=== PATIENT | male | born 1960 | race Caucasian/White ===

== ENCOUNTER 2016-03-21 07:36 | Emergency (ER) | payer BC ==
[~2016-03-21] VITALS: Ht 185.4 cm; Wt 89.0 kg
[2016-03-21 07:45] VITALS: Ht 185.4 cm; Wt 89.0 kg
[2016-03-21] MEDS ORDERED: SULFAMETHOXAZOLE/TRIMETHOPRIM DS 800/160MG TAB PO STA (08:05)
[2016-03-21] MEDS ORDERED: CEFTRIAXONE SOD INJ 1 GM ADDVIAL IV STA (08:05)
--- NOTE | 2016-03-21 08:57 | DIAGNOSTIC IMAGING REPORT ---
LEFT ELBOW MIN 3 VIEWS ROUTINE CLINICAL HISTORY: Pain following trauma. Possible septic joint. COMPARISON: None. DISCUSSION: The fat pads are not displaced. There are no acute fractures. There is a small spur at the level of both the medial and lateral epicondyles. There is 11 mm corticated ossicle inferior to the medial epicondyle. There is prominent posterior soft tissue swelling. No cortical destructive lesions are visualized. IMPRESSION: 1. No acute fractures 2. Prominent posterior soft tissue swelling 3. No destructive lesions are evident. Electronically signed by: Kyle Paz M.D. 03/21/2016 8:55 AM Dictated Date/Time: 03/21/2016 8:53 AM
[2016-03-21 09:00] LABS: BASO % 0.1 %; BASO ABS # 0.02 K/uL (0-0.2); COMPLETE YES; EOS % 0.6 %; HEMATOCRIT 49.4 % (42-52); IG% 0.5 %; LYMPH % 12.2 %; LYMPH ABS # 1.63 K/uL (1.2-3.4); MEAN CELL VOLUME 94.1 fL (80-100); MEAN CORPUSCULAR HEMOGLOBIN 34.7 pg (25-34); MEAN CORPUSCULAR HGB CONC 36.8 g/dl (32-36); MEAN PLATELET VOLUME 11.5 fL (7.4-10.4); NEUT % 75.6 %; PLATELET COUNT 289 K/uL (130-400); RED BLOOD COUNT 5.25 M/uL (4.7-6.1); WHITE BLOOD COUNT 13.41 K/uL (4.8-10.8)
[2016-03-21 09:16] LABS: BUN/CREATININE RATIO 14.2 (10-20); C-REACTIVE PROTEIN 2.69 mg/dl (0-0.29); CALCIUM 9.5 mg/dl (8.5-10.1); CREATININE 1.1 mg/dl (0.60-1.40); MAGNESIUM 2.2 mg/dl (1.8-2.4); POTASSIUM 4.2 mmol/L (3.5-5.1)
[2016-03-21] MEDS ORDERED: CEPH500C PO (10:05)
[2016-03-21] MEDS ORDERED: SULF800T23 PO (10:05)
--- NOTE | 2016-03-21 10:06 | EMERGENCY ROOM VISIT NOTE ---
History First contact with patient: 07:40 Chief Complaint: ELBOW PAIN/INJURY Stated Complaint: LEFT ELBOW PAIN History of Present Illness The patient is a 56 year old male who presents to the Emergency Department by private vehicle for evaluation of his LEFT elbow pain and swelling. He reports that he slipped and fell on the ice landing on his elbow a few weeks ago while hunting. He has small abrasion to the area which gave him no issues. He reports over the last 48 hours he has noticed increasing swelling, redness, warmth to the affected area. He is tried kapl-euy-hyruunf medications with minimal relief of symptoms. He reports decreased range of motion. He denies any fevers, chills, nausea, vomiting, or lethargic streaking. He rates his current discomfort as a 4/10. He denies any numbness or tingling into the distal extremity. The patient has no known history of MRSA infection. Review of Systems A complete 10-point Review of Systems was discussed with the patient, with pertinent positives and negatives listed in the History of Present Illness. All remaining Review of Systems questions can be considered negative unless otherwise specified. Social History Smoking Status: Never Smoker Smokeless Tobacco Use: No Alcohol Use: occasionally Marital Status: Housing Status: lives with significant other Occupation Status: employed Current/Historical Medications Scheduled Cephalexin Monohydrate (Keflex), 500 MG PO TID Sulfa/Trimethoprim (Bactrim Ds 800MG/160MG), 1 TAB PO BID Allergies Coded Allergies: No Known Allergies (Unverified , 03/24/16) Physical Exam Vital Signs Date Time Temp Pulse Resp B/P Pulse Ox O2 Delivery O2 Flow Rate FiO2 03/21/16 10:16 37.0 89 16 133/89 97 03/21/16 09:12 88 20 152/94 95 Room Air 03/21/16 07:45 37.2 94 18 156/91 96 Room Air Pain Rating (0-10): 4 Physical Exam VITAL SIGNS - Vital signs and nursing notes were reviewed. GENERAL - 56-year-old male appearing his stated age and in noticeable discomfort throughout the exam. MUSCULOSKELETAL - Active ROM of the LEFT elbow was limited in both flexion and extension secondary to edema. There is an abrasion to the olecranon with underlying significant edema and surrounding erythema. The area is mildly warm to touch. No fluctuance to palpation. No lymphangitic streaking. No tenderness with squeezing the forearm. No tenderness extending to up the humerus. No point-tenderness over the insertion of the No pain elicited with supination and pronation of the forearm. No palpable axillary lymphadenopathy. NEUROLOGIC - SENSORY: Spinothalamic tract was found to be intact with ability to discriminate sharp versus dull sensation at the level of the LEFT shoulder down to the fingertips. No sensory deficits of the dorsal column were appreciated utilizing light touch for evaluation. VASCULAR - Capillary refill was brisk. +3/5 radial pulse palpated. Medical Decision & Procedures ER Provider Diagnostic Interpretation: Radiological imaging and reports were reviewed by myself. Radiologist's Interpretation as follows: LEFT ELBOW MIN 3 VIEWS ROUTINE CLINICAL HISTORY: Pain following trauma. Possible septic joint. COMPARISON: None. DISCUSSION: The fat pads are not displaced. There are no acute fractures. There is a small spur at the level of both the medial and lateral epicondyles. There is 11 mm corticated ossicle inferior to the medial epicondyle. There is prominent posterior soft tissue swelling. No cortical destructive lesions are visualized. IMPRESSION: 1. No acute fractures 2. Prominent posterior soft tissue swelling 3. No destructive lesions are evident. Laboratory Results 03/21/16 08:30 Red Blood Count 5.25, Mean Corpuscular Volume 94.1, Mean Corpuscular Hemoglobin 34.7, Mean Corpuscular Hemoglobin Concent 36.8, Mean Platelet Volume 11.5, Neutrophils (%) (Auto) 75.6, Lymphocytes (%) (Auto) 12.2, Monocytes (%) (Auto) 11.0, Eosinophils (%) (Auto) 0.6, Basophils (%) (Auto) 0.1, Neutrophils # (Auto ) 10.14, Lymphocytes # (Auto) 1.63, Monocytes # (Auto) 1.47, Eosinophils # (Auto ) 0.08, Basophils # (Auto) 0.02 03/21/16 08:30 Test 03/21/16 08:30 White Blood Count 13.41 K/uL (4.8-10.8) Red Blood Count 5.25 M/uL (4.7-6.1) Hemoglobin 18.2 g/dL (14.0-18.0) Hematocrit 49.4 % (42-52) Mean Corpuscular Volume 94.1 fL (80-100) Mean Corpuscular Hemoglobin 34.7 pg (25-34) Mean Corpuscular Hemoglobin Concent 36.8 g/dl (32-36) Platelet Count 289 K/uL (130-400) Mean Platelet Volume 11.5 fL (7.4-10.4) Neutrophils (%) (Auto) 75.6 % Lymphocytes (%) (Auto) 12.2 % Monocytes (%) (Auto) 11.0 % Eosinophils (%) (Auto) 0.6 % Basophils (%) (Auto) 0.1 % Neutrophils # (Auto) 10.14 K/uL (1.4-6.5) Lymphocytes # (Auto) 1.63 K/uL (1.2-3.4) Monocytes # (Auto) 1.47 K/uL (0.11-0.59) Eosinophils # (Auto) 0.08 K/uL (0-0.5) Basophils # (Auto) 0.02 K/uL (0-0.2) RDW Standard Deviation 42.9 fL (36.4-46.3) RDW Coefficient of Variation 12.6 % (11.5-14.5) Immature Granulocyte % (Auto) 0.5 % Immature Granulocyte # (Auto) 0.07 K/uL (0.00-0.02) Erythrocyte Sedimentation Rate 13 mm/hr (0-14) Anion Gap 11.0 mmol/L (3-11) Est Creatinine Clear Calc Drug Dose 84.7 ml/min Estimated GFR () 86.5 Estimated GFR (Non- 74.6 BUN/Creatinine Ratio 14.2 (10-20) Calcium Level 9.5 mg/dl (8.5-10.1) Magnesium Level 2.2 mg/dl (1.8-2.4) Total Bilirubin 1.3 mg/dl (0.2-1) Aspartate Amino Transf (AST/SGOT) 23 U/L (15-37) Alanine Aminotransferase (ALT/SGPT) 62 U/L (12-78) Alkaline Phosphatase 73 U/L (45-117) C-Reactive Protein 2.69 mg/dl (0-0.29) Total Protein 8.5 gm/dl (6.4-8.2) Albumin 4.3 gm/dl (3.4-5.0) Globulin 4.2 gm/dl (2.5-4.0) Albumin/Globulin Ratio 1.0 (0.9-2) Date/Time Source Procedure Growth Status 03/21/16 08:30 Blood Blood Culture - Final NO GROWTH Complete 03/21/16 08:03 Abscess Elbow Gram Stain - Final Complete 03/21/16 08:03 Wound Culture - Final Staphylococcus Aureus Coag Neg Staphylococcus Complete Medications Administered Medications (Trade) Dose Ordered Sig/Gely Route Start Time Stop Time Status Last Admin Dose Admin Ceftriaxone Sodium (Rocephin Inj) 1 gm NOW STAT IV 03/21/16 08:05 03/21/16 08:09 DC 03/21/16 08:49 1 GM Trimethoprim/ Sulfamethoxazole (Septra Ds 800/ 160MG Tab) 1 tab NOW STAT PO 03/21/16 08:05 03/21/16 08:09 DC 03/21/16 08:32 1 TAB ED Course Patient was seen and evaluated by myself. An abrasion to the left elbow was unroofed and wound culture was obtained and pending. Labs were drawn, saline lock in place. Blood cultures were obtained. The patient was treated with 1 g of intravenous Rocephin and 1 oral Bactrim laboratory results demonstrate a moderate leukocytosis of greater than 13,000. The patient is not anemic. There are no significant electrolyte abnormalities. ESR is not elevated. CRP is minimally elevated. Imaging results above. Laboratory results and imaging studies were reviewed with the patient who acknowledges understanding. The patient will return to the emergency department 48 hours for recheck. He was educated on worrisome symptoms for return visit to the emergency department sooner within this timeframe. Patient was educated on jacz-reg-ebnicct medications. He declines any pain at home. Patient discharged home in good condition. Medical Decision Given the patient's presentation and exam findings, I did elect to perform the above-mentioned workup. The patient presents today with pain, swelling, and redness to the olecranon of the left elbow. He has no fever. He does have a leukocytosis. The patient was aggressively managed with intravenous antibiotics as well as oral antibiotics to cover for MRSA strains of infection. X-ray results demonstrate no intra-articular extension of the infection or joint effusion otherwise. It appears as though the infection is isolated to the electron area. He is likely expansion an acute olecranon bursitis with infection. He'll be placed on Keflex and Bactrim for home. He will return in 48 hours for wound recheck or sooner if his symptoms worsen in this timeframe. The patient is not a diabetic making his care decision for treatment and outpatient much easier. The patient was educated on worrisome symptoms for return visit to the emergency department. Patient discharged home afebrile and in good condition. In the evaluation and treatment of this patient, the following differential diagnoses were considered: Forearm Contusion, Radial Head Fracture, Radial Styloid Process Fracture, Ulnar Styloid Process Fracture, Radius Fracture, Ulnar Fracture, Tennis Elbow, Golfer's Elbow, or Elbow Fracture. Impression Primary Impression: Septic olecranon bursitis of left elbow Departure Information Dispostion Home / Self-Care Condition GOOD Prescriptions Sulfa/Trimethoprim (Bactrim Ds 800MG/160MG) Tab 1 TAB PO BID for 10 Days, #20 TAB Prov: Kevin Hawthorne PA-C 03/21/16 Cephalexin Monohydrate (Keflex) 500 Mg Cap 500 MG PO TID for 10 Days, #30 CAP Prov: Kevin Hawthorne PA-C 03/21/16 Referrals No Doctor, Assigned (PCP) Patient Instructions ED Bursitis Elbow Olecranon, [facility] Additional Instructions You were seen in the Emergency Department for Septic Olecranon Bursitis. You will need to return to the emergency department in 48 hours for wound recheck. Return to the emergency department sooner within this timeframe if your symptoms worsen despite the treatment plan outlined below. You were prescribed Keflex and Bactrim to be taken as prescribed. Both of these medications are antibiotics. Stop these medications and contact a medical provider if you were to develop any significant adverse side effects including: wheezing, shortness of breath, passing out, vomiting, or a diffuse rash. Always take antibiotics as directed and COMPLETE the ENTIRE course regardless of the improvement of your symptoms. Proper wound care is essential for adequate wound healing and infection prevention. You can shower and clean the wound with soap and water. Do not scour over the wound. Pat dry with a towel. Do not submerse the wound (i.e. bathe or dish wash) until the sutures have been removed. You can use an antibiotic ointment with a dressing over the wound for the next 3-4 days. After this time you may leave the wound dry and open to the air. If crust develops over the wound you can use a Q-tip to apply a 1:1 peroxide:water solution to clean the wound. Look for signs of infection of the wound including: increased pain, swelling, foul discharge, streaking, or increased temperature. If any of these are noticed you should return to the Emergency Department for further assessment and treatment. For pain control, you can use the following ktdj-yfz-klwpsak medicines (if >12 yo): - Regular strength (325mg/tab) Tylenol (acetaminophen) 2 tabs every 4-6 hours as needed. Do not exceed 12 tablets in a 24 hour period. Avoid taking more than 4 grams (4000 mg) of Tylenol per day. This includes any other sources of acetaminophen you may take on a regular basis. - Regular strength (200 mg/tab) Advil (ibuprofen) 1-2 tabs every 4-6 hours as needed. Do not exceed a dose of 3200 mg per day. Return to the emergency department if your symptoms worsen despite treatment course outlined above.
[2016-03-21 10:16] VITALS: BP 133/89; PULSE 89; TEMP 37; O2SAT 97
--- NOTE | 2016-03-23 10:55 | Pharmacy Progress Note ---
ED Pharmacist Culture FollowUp Date of Service: Mar 23, 2016. Patient was sent home with a prescription for Keflex 500mg PO TID and Bactrim DS 1 tab PO BID x 10 days, which should cover the Staph Aureus growing from the patient's deep wound culture from elbow abscess. This culture is also growing CoN Staph, rare quantity, this could reflect skin fitz and not an infectious organism, however if it were pathogenic there is a chance it may be covered by Bactrim as well. Patient is to return for wound f/u in 48 hours. No action required at this time.
== END 2016-03-21 10:17 | disposition home or self-care (01) ==
LOC: C.EDB 07:37
DX: M70.22 Olecranon bursitis, left elbow (principal)

== ENCOUNTER 2016-03-24 10:04 | Emergency (ER) | payer BC ==
[~2016-03-24] VITALS: Ht 185.4 cm; Wt 94.2 kg
[~2016-03-24 10:04] MED LIST: CEPH500C PO; SULF800T23 PO
[2016-03-24 10:16] VITALS: TEMP 36.8; Ht 185.4 cm; Wt 94.2 kg
--- NOTE | 2016-03-24 10:50 | EMERGENCY ROOM VISIT NOTE ---
ED Visit Note First contact with patient: 10:25 CHIEF COMPLAINT: Recheck of left elbow HISTORY OF PRESENT ILLNESS: This 56-year-old male patient presents to the emergency department a mandatory for a recheck of his left elbow wound. The patient states that he was seen here 3 days ago and told he had an infection of the left elbow. He was placed on antibiotics and sent home. He has been taking the antibiotics as prescribed. He does report that the wound appears to be improving. He rates his current discomfort a 2/10. He states there is decreased redness and swelling of the elbow and his range of motion has improved. He denies any fevers/chills. He denies any drainage from the elbow. REVIEW OF SYSTEMS: A review of systems was performed with positives and pertinent negatives listed in the history of present illness. All other systems were reviewed and are negative. ALLERGIES: No known drug allergies MEDICATIONS: No chronic medications PMH: No significant past medical history. SOCIAL HISTORY: The patient lives locally with family. He is a smoker. He admits to occasional alcohol use. PHYSICAL EXAM: VITALS: Vitals are noted on the nurse's note and reviewed by myself. Vital signs stable. GENERAL: This is a 56-year-old male, in no acute distress, nondiaphoretic, well- developed well-nourished. MUSCULOSKELETAL: There is mild edema over the left elbow. There is minimal erythema over the left olecranon process. There is a small scabbed area. There is no drainage or warmth. EMERGENCY DEPARTMENT COURSE: The patient was evaluated as above. Previous records were reviewed. The patient was seen here 3 days ago for a septic olecranon bursitis. Cultures were obtained at that time and did grow out staph aureus sensitive to Bactrim. The patient was informed that he may stop taking the Keflex. He will continue the Bactrim as prescribed. He was instructed to return for worsening symptoms or follow up with his primary care provider for a recheck next week. The patient verbalized understanding of my assessment and treatment plan and was discharged home in good condition. DIAGNOSIS: Wound recheck Current/Historical Medications Scheduled Cephalexin Monohydrate (Keflex), 500 MG PO TID Sulfa/Trimethoprim (Bactrim Ds 800MG/160MG), 1 TAB PO BID Allergies Coded Allergies: No Known Allergies (Unverified , 03/24/16) Vital Signs Date Time Temp Pulse Resp B/P Pulse Ox O2 Delivery O2 Flow Rate FiO2 03/24/16 11:11 77 16 144/79 98 03/24/16 10:16 36.8 84 16 146/90 97 Room Air Departure Information Impression Primary Impression: Encounter for wound re-check Dispostion Home / Self-Care Condition GOOD Referrals No Doctor, Assigned (PCP) Narciso Navarrete MD Patient Instructions My [facility] Additional Instructions Continue the Bactrim twice daily as prescribed. Made sure to complete this entire course of antibiotics. You may stop taking the Keflex. For pain control, you can use the following ucrj-tyu-ejjohuu medicines (if >12 yo): - Regular strength (325mg/tab) Tylenol (acetaminophen) 2 tabs every 4-6 hours as needed. Do not exceed 12 tablets in a 24 hour period. Avoid taking more than 4 grams (4000 mg) of Tylenol per day. This includes any other sources of acetaminophen you may take on a regular basis. - Regular strength (200 mg/tab) Advil (ibuprofen) 1-2 tabs every 4-6 hours as needed. Do not exceed a dose of 3200 mg per day. If there is any persistent swelling of the elbow after the antibiotics are finished, follow-up with orthopedics. You should follow-up with your primary care provider next week in 4-5 days for a recheck. Return to the emergency department immediately with worsening swelling, worsening redness, fevers, drainage or any other new/concerning symptoms.
[2016-03-24 11:11] VITALS: BP 144/79; PULSE 77; O2SAT 98
== END 2016-03-24 11:12 | disposition home or self-care (01) ==
LOC: C.EDB 10:06 → C.EDD 11:12
DX: Z09 Encounter for follow-up examination after completed treatment for conditions other than malignant neoplasm (principal); M70.22 Olecranon bursitis, left elbow; B95.61 Methicillin susceptible Staphylococcus aureus infection as the cause of diseases classified elsewhere; F17.210 Nicotine dependence, cigarettes, uncomplicated

== ENCOUNTER 2020-03-12 20:02 | Observation (INO) ==
[2020-03-12] MEDS ORDERED: SODIUM CHLORIDE 0.9% 1000ML 1,000 ML IV SCH (20:15)
--- NOTE | 2020-03-12 20:20 | Emergency Department Note ---
History of Present Illness General Chief complaint: Syncope Stated complaint: SYNCOPE, FALL, Time Seen by Provider: 03/12/20 20:04 Source: patient and EMS Mode of arrival: EMS History of Present Illness Provider complaint: Syncope Onset (ago): hour(s) 1 Location: head Pain Consistency: + intermittent Quality: + other (Passed out) Exacerbated By: + other (Sitting up) Associated symptoms: no chest pain, no cough, no fever/chills, no headaches, no malaise, no nausea/vomiting, no seizure and no shortness of breath This is a 60-year-old male who presents status post syncopal episode at approximately 7 PM today. The patient states he was standing talking to someone when he just suddenly passed out. He had no symptoms prior to passing out. Witnesses state that he fell backwards hitting his head on the ground. He was unconscious briefly and when they try to sit him up he passed out again. They then called EMS. EMS arrived and when they try to set him up he passed out once more. He stated that he has been well and has had no recent illness. He denies having any current or previous chest discomfort, shortness of breath, palpitations, skipping of his heartbeat, headache, neck pain, back pain, abdominal pain, black or bloody stools, vomiting, diarrhea or urinary symptoms. He did have an exposure to COVID-19 on Sunday of the previous week. He subsequently had a COVID-19 test 7 days ago which was negative. He denies any cough or cold symptoms. He denies any symptoms at this time other than an abrasion to his right knee. He does state that his tetanus is up-to-date. He has never passed out before. There is no history of sudden in the family. There is no report of seizure activity but he did have incontinence after the third episode of syncope. He did later state that he drank about 6 beers tonight. They were light beers and he did not feel intoxicated. Home Medications Medication Instructions Recorded Confirmed Type multivit with min-folic acid 1 tab PO QAM 03/12/20 03/12/20 History [Men's Multivitamin Gummies] omeprazole magnesium [Prilosec OTC] 20 mg PO QAM 03/12/20 03/12/20 History Allergies Allergy/AdvReac Type Severity Reaction Status Date / Time No Known Allergies Allergy Verified 03/12/20 22:09 Past Med/Surg History Surgical History (Updated 03/13/20 @ 00:09 by Eri Mederos DO) History of elbow surgery Family History Father Pancreatic cancer Denies family history of Prostate cancer Social History (Updated 03/13/20 @ 00:09 by Eri Mederos DO) Smoking Status: Current some day smoker Tobacco Type: Cigars Hx Alcohol Use: Yes Preferred Language: [place] Islander Feels Safe at Home: Yes Review of Systems See HPI for pertinent positives & negatives. and A total of 10 systems reviewed and were otherwise negative Physical Exam Vital Signs Vital Signs - 24 hr 03/12/20 20:24 03/12/20 20:30 03/12/20 21:14 Temperature 36.5 C Temperature Source Oral Pulse Rate - Lying 104 H Pulse Rate - Sitting 108 H Pulse Rate - Standing 111 H Pulse Rate 80 97 H Pulse Rate from SpO2 Sensor 89 Pulse Rhythm Regular Pulse Strength Normal Respiratory Rate 18 14 Respiratory Effort / Characteristics Non-Labored Spontaneous Respiratory Depth Normal Respiratory Pattern Regular Blood Pressure - Lying 152/83 H Blood Pressure - Sitting 155/87 H Blood Pressure- Standing 147/78 H Blood Pressure 155/78 H 144/77 H Blood Pressure Mean 103 103 Blood Pressure Position Lying Pulse Oximetry 97 95 Oxygen Delivery Method Room Air Room Air Sepsis Recent Fever Within 48 Hours No Sepsis New/Unexplained Change in Mental Status No Sepsis Action Taken by Nursing No Action Required 03/12/20 21:30 03/12/20 22:00 03/12/20 22:30 Temperature Temperature Source Pulse Rate - Lying Pulse Rate - Sitting Pulse Rate - Standing Pulse Rate 105 H 108 H 112 H Pulse Rate from SpO2 Sensor Pulse Rhythm Pulse Strength Respiratory Rate 14 15 17 Respiratory Effort / Characteristics Respiratory Depth Respiratory Pattern Blood Pressure - Lying Blood Pressure - Sitting Blood Pressure- Standing Blood Pressure 141/76 H 132/73 139/75 Blood Pressure Mean 94 92 82 Blood Pressure Position Pulse Oximetry 96 Oxygen Delivery Method Room Air Sepsis Recent Fever Within 48 Hours Sepsis New/Unexplained Change in Mental Status Sepsis Action Taken by Nursing 03/12/20 23:08 03/12/20 23:30 03/13/20 00:00 Temperature Temperature Source Pulse Rate - Lying Pulse Rate - Sitting Pulse Rate - Standing Pulse Rate 107 H 113 H 109 H Pulse Rate from SpO2 Sensor 108 H 112 H Pulse Rhythm Pulse Strength Respiratory Rate 15 18 17 Respiratory Effort / Characteristics Respiratory Depth Respiratory Pattern Blood Pressure - Lying Blood Pressure - Sitting Blood Pressure- Standing Blood Pressure 153/90 H 141/91 H 152/83 H Blood Pressure Mean 107 106 105 Blood Pressure Position Pulse Oximetry 94 94 94 Oxygen Delivery Method Room Air Room Air Room Air Sepsis Recent Fever Within 48 Hours Sepsis New/Unexplained Change in Mental Status Sepsis Action Taken by Nursing 03/13/20 00:30 Temperature Temperature Source Pulse Rate - Lying Pulse Rate - Sitting Pulse Rate - Standing Pulse Rate 114 H Pulse Rate from SpO2 Sensor 113 H Pulse Rhythm Pulse Strength Respiratory Rate 18 Respiratory Effort / Characteristics Respiratory Depth Respiratory Pattern Blood Pressure - Lying Blood Pressure - Sitting Blood Pressure- Standing Blood Pressure 140/83 Blood Pressure Mean 99 Blood Pressure Position Pulse Oximetry 93 Oxygen Delivery Method Room Air Sepsis Recent Fever Within 48 Hours Sepsis New/Unexplained Change in Mental Status Sepsis Action Taken by Nursing Constitutional: Vital signs reviewed. Eyes: Pupils are equal round reactive to light. Conjunctiva are noninjected. ENT: Pharynx is clear without erythema or exudate. Mucous membranes are moist. Neck supple without meningeal signs. No midline tenderness to the cervical spi ne. Respiratory: Clear to auscultation bilaterally. Breath sounds are equal bilaterally. Cardiovascular: Regular rate and rhythm. No rubs or gallops. GI: Soft, nondistended and nontender. Bowel sounds are present. Musculoskeletal: No peripheral edema. No hip tenderness. Small abrasion to the right kneecap without bony tenderness. Integumentary: No cyanosis. or jaundice. Neurologic: The patient is awake and alert. Cranial nerves II-XII are intact. Motor is 5 out of 5 all extremities. Sensation is intact to light touch all extremities. Normal speech. No pronator drift. Psychiatric: Normal affect. Not anxious appearing. Does not appear intoxicated. Course Administered Medications Discontinued Medications Sodium Chloride (Nss 1000ml) 1,000 mls @ 999 mls/hr IV .Q1H1M CHRISTI Stop: 03/12/20 21:15 Last Infusion: 03/12/20 21:48 Dose: 0 mls/hr Documented by: [id number] Admin: 03/12/20 20:36 Dose: 999 mls/hr Documented by: [id number] Ioversol (Optiray 320 125ml) 119 ml IV ONCE ONE Stop: 03/12/20 23:06 Last Admin: 03/12/20 23:05 Dose: 119 ml Documented by: [id number] Medical Decision Making Differential Diagnosis Syncope, dysrhythmia, metabolic derangement, orthostatic hypotension, dehydration, hypoglycemia, alcohol intoxication Medical Records Attestation: I reviewed the patient's medical records. I did perform a limited focused review of portions of the patient's old chart on the electronic medical record. The patient has had no recent pertinent visits to this hospital. Home Medications Current Medication List: was personally reviewed by me Laboratory Data Attestation: I reviewed the patient's lab results. Result diagrams: 03/12/20 20:19 03/12/20 20:19 Lab Results 03/12/20 03/12/20 03/12/20 Range/Units 20:19 20:19 21:26 WBC 11.14 H (4.8-10.8) K/uL RBC 4.64 L (4.7-6.1) M/uL Hgb 15.9 (14.0-18.0) g/dL Hct 44.7 (42-52) % MCV 96.3 (80-100) fL MCH 34.3 H (25-34) pg MCHC 35.6 (32-36) g/dL RDW Std Deviation 45.0 (36.4-46.3) fL RDW Coeff of Bianca 12.9 (11.5-14.5) % Plt Count 204 (130-400) K/uL MPV 11.4 H (7.4-10.4) fL Immature Gran % (Auto) 0.4 % Neut % (Auto) 73.6 % Lymph % (Auto) 18.2 % Isabela % (Auto) 6.6 % Eos % (Auto) 1.0 % Baso % (Auto) 0.2 % Neut # (Auto) 8.19 H (1.4-6.5) K/uL Lymph # (Auto) 2.03 (1.2-3.4) K/uL [place] # (Auto) 0.74 H (0.11-0.59) K/uL Eos # (Auto) 0.11 (0-0.5) K/uL Baso # (Auto) 0.02 (0-0.2) K/uL Immature Gran # (Auto) 0.05 H (0.00-0.02) K/uL Sodium 141 (136-145) mmol/L Potassium 3.9 (3.5-5.1) mmol/L Chloride 109 H (98-107) mmol/L Carbon Dioxide 24 (21-32) mmol/L Anion Gap 8.0 (3-11) BUN 18 (7-18) mg/dl Creatinine 1.53 H (0.6-1.4) mg/dl Est Cr Clr Drug Dosing 61.4 ml/min Est GFR ( Amer) 56.4 Est GFR (Non-Af Amer) 48.7 BUN/Creatinine Ratio 11.8 (10-20) Glucose 111 H (70-99) mg/dl Calcium 9.0 (8.5-10.1) mg/dl Magnesium 2.1 (1.8-2.4) mg/dl Total Bilirubin 0.5 (0.2-1) mg/dl AST 18 (15-37) U/L ALT 36 (12-78) U/L Alkaline Phosphatase 65 (45-117) U/L Troponin I < 0.015 (0-0.045) ng/ml Total Protein 7.8 (6.4-8.2) gm/dl Albumin 4.0 (3.4-5.0) gm/dl Globulin 3.8 (2.5-4.0) gm/dl Albumin/Globulin Ratio 1.1 (0.9-2) TSH 3.350 (0.300-4.500) uIu/ml Ethyl Alcohol mg/dL 22.2 H (0-3) mg/dl COVID-19 Eval Order SARS-CoV-2, RNA, NAAT (NEGATIVE) 03/12/20 03/12/20 Range/Units 23:15 23:15 WBC (4.8-10.8) K/uL RBC (4.7-6.1) M/uL Hgb (14.0-18.0) g/dL Hct (42-52) % MCV (80-100) fL MCH (25-34) pg MCHC (32-36) g/dL RDW Std Deviation (36.4-46.3) fL RDW Coeff of Bianca (11.5-14.5) % Plt Count (130-400) K/uL MPV (7.4-10.4) fL Immature Gran % (Auto) % Neut % (Auto) % Lymph % (Auto) % Isabela % (Auto) % Eos % (Auto) % Baso % (Auto) % Neut # (Auto) (1.4-6.5) K/uL Lymph # (Auto) (1.2-3.4) K/uL Isabel[place] # (Auto) (0.11-0.59) K/uL Eos # (Auto) (0-0.5) K/uL Baso # (Auto) (0-0.2) K/uL Immature Gran # (Auto) (0.00-0.02) K/uL Sodium (136-145) mmol/L Potassium (3.5-5.1) mmol/L Chloride (98-107) mmol/L Carbon Dioxide (21-32) mmol/L Anion Gap (3-11) BUN (7-18) mg/dl Creatinine (0.6-1.4) mg/dl Est Cr Clr Drug Dosing ml/min Est GFR ( Amer) Est GFR (Non-Af Amer) BUN/Creatinine Ratio (10-20) Glucose (70-99) mg/dl Calcium (8.5-10.1) mg/dl Magnesium (1.8-2.4) mg/dl Total Bilirubin (0.2-1) mg/dl AST (15-37) U/L ALT (12-78) U/L Alkaline Phosphatase (45-117) U/L Troponin I (0-0.045) ng/ml Total Protein (6.4-8.2) gm/dl Albumin (3.4-5.0) gm/dl Globulin (2.5-4.0) gm/dl Albumin/Globulin Ratio (0.9-2) TSH (0.300-4.500) uIu/ml Ethyl Alcohol mg/dL (0-3) mg/dl COVID-19 Eval [facility]19 [facility] SARS-CoV-2, RNA, NAAT NEGATIVE (NEGATIVE) Imaging Data Radiologist's Impression: Preliminary Findings Only See Final Report For Complete Findings CT HEAD: The paranasal sinuses and mastoid air cells are normally aerated. There is no skull fracture or scalp hematoma. There is a normal gyral pattern of the brain. There is no mass lesion or midline shift. The roque-white matter differentiation is maintained. The ventricles and CSF spaces are normal. There is no evidence of acute large vessel infarct or intracranial hemorrhage. Radiologist: Noe Mederos MD Study ready at 21:07 and initial results transmitted at 21:22 Preliminary Findings Only See Final Report For Complete Findings CT C SPINE: Moderate to severe multilevel degenerative disc disease throughout the cervical spine greatest at C3-4, C4-5, and C5-6. At C5-6 there is posterior disc marginal osteophyte formation measuring up to 5 mm which narrows the canal to 8 mm. There is moderate left neural foraminal narrowing at C3-4, C4-5, and C5-6. There is severe left neural foraminal narrowing at C6-7. There is severe right neural foraminal narrowing at C5-6 and C6-7. No acute fracture or subluxation is identified. Moderate calcification of the left carotid bifurcation. Radiologist: Noe Mederos MD Study ready at 21:12 and initial results transmitted at 21:35 XR chest 1V portable HISTORY: syncope COMPARISON: None. FINDINGS: A few small left basilar linear densities suggesting scarring or atelectasis. Otherwise, lungs are clear. The heart is normal in size. No pleural effusions. No pneumothorax. IMPRESSION: No acute process. ACT 112: Negative or not required by law. Electronically signed by: Omega Katz M.D. 03/12/2020 8:49 PM Dictated: 03/12/202047 Transcribed: 03/12/202047 Preliminary Findings Only See Final Report For Complete Findings CTA CHEST: The pulmonary arterial tree is well opacified with contrast. No pulmonary emboli are identified. The thoracic aorta is nondilated. There is no aneurysm or dissection. Lungs are well inflated with mildly prominent interstitial markings in both lung bases which may represent subsegmental atelectasis, less likely interstitial infiltrates. There is no pneumothorax or pleural effusion. Limited images of the upper abdomen demonstrate fatty infiltration of the liver. There is partial visualization of a 4.2 cm 14 HU cystic-appearing structure of the right retroperitoneum, possibly cyst extending off the upper pole the right kidney. Mild multilevel osteophytosis is seen throughout the thoracic spine. No acute fracture or bone lesion is identified. Radiologist: Noe Mederos MD Study ready at 23:17 and initial results transmitted at 23:35 ECG Data Attestation: I personally reviewed and interpreted this ECG as follows: Indication: + syncope Rate (beats per minute): 86 Rhythm: + normal sinus ECG Intervals/blocks: + Normal QT and + Normal FL ECG ST segments: no ST elevation ECG Findings: no PVCs Head Trauma GCS Score: 15 MDM Narrative I did evaluate the patient as noted above. I did obtain history from the patient as well as EMS. The patient had a sudden syncopal episode while talking with somebody. He then subsequently had 2 more syncopal episodes when they attempted to sit him up. Currently he is without complaints. I did place an order for continuous cardiac monitoring. The monitor showed normal sinus rhythm at a rate of 88 bpm. I did order and personally review the patient's 12-lead EKG as described above. There is no evidence of acute ischemia. No dysrhythmia. No QT prolongation or preexcitation. Orthostatic vital signs were obtained and does not show significant orthostasis. I did order and personally reviewed the images of the patient's chest x-ray as described above. I did order a urine analysis. I did order and review the patient's blood work as noted in the electronic medical record. His white blood cell count is slightly elevated 11. This is a nonspecific finding. Creatinine is 1.5. Troponin is negative. Electrolytes and LFTs are unremarkable. Serum alcohol is only 22.2. I did order a CT of the head and cervical spine. I did review the images myself as well as the radiology report as described above. There is no evidence of acute intracranial hemorrhage. No cervical fractures. I did reassess the p atient. He is tachycardic at this time but has no complaints. He denies any history of PE or DVT. He has no leg swelling or pain or any immobilization. Given his history of syncope and persistent tachycardia I did recommend CT angiogram of the chest as well as hospitalization. He was agreeable. I did order a CT angiogram of the chest which showed no evidence of pulmonary embolism or aneurysm or dissection. He does have some fatty infiltration of the liver. I did discuss the case with the hospitalist and case management assistant. Impression & Plan Syncope, Acute head injury, Elevated serum creatinine, Tachycardia Discharge Plan Visit Data Chief Complaint: Syncope Stated Complaint: SYNCOPE, FALL, ED Provider: Ector Johnson Discharge Problem: Syncope, Acute head injury, Elevated serum creatinine, Tachycardia Forms Stand Alone Forms: [employer] Prescriptions Prescriptions: No Action Men's Multivitamin Gummies 200 mcg Tablet,Chewable 1 tab PO QAM RF: 0 omeprazole magnesium [Prilosec OTC] 20 mg Tablet,Delayed Release (Dr/Ec) 20 mg PO QAM RF: 0 Referrals Referrals: Juanito Light [Primary Care Provider] - Discharge Problem: Syncope Qualifiers: Syncope type: unspecified Qualified Code(s): R55 - Syncope and collapse Acute head injury Qualifiers: Encounter type: initial encounter Qualified Code(s): S09.90XA - Unspecified injury of head, initial encounter
[2020-03-12 20:27] LABS: Basophils # (auto) 0.02 K/uL (0-0.2); Basophils % (auto) 0.2 %; Eosinophils # (auto) 0.11 K/uL (0-0.5); Hematocrit (blood only) 44.7 % (42-52); Hemoglobin 15.9 g/dL (14.0-18.0); Immature Granulocytes # (auto) 0.05 K/uL (0.00-0.02); Immature Granulocytes % (auto) 0.4 %; Lymphocytes # (auto) 2.03 K/uL (1.2-3.4); Lymphocytes % (auto) 18.2 %; Mean Corpuscular Hemoglobin 34.3 pg (25-34); Mean Corpuscular Hgb Conc 35.6 g/dL (32-36); Mean Corpuscular Volume 96.3 fL (80-100); Mean Platelet Volume 11.4 fL (7.4-10.4); Monocytes # (auto) 0.74 K/uL (0.11-0.59); Monocytes % (auto) 6.6 %; Neutrophils # (auto) 8.19 K/uL (1.4-6.5); Neutrophils % (auto) 73.6 %; Platelet Count 204 K/uL (130-400); RDW Coefficient of Variation 12.9 % (11.5-14.5); Red Blood Count 4.64 M/uL (4.7-6.1); White Blood Count 11.14 K/uL (4.8-10.8)
[2020-03-12 20:44] LABS: Alanine Aminotransferase 36 U/L (12-78); Aspartate Aminotransferase 18 U/L (15-37); BUN Creatinine Ratio 11.8 (10-20); Blood Urea Nitrogen 18 mg/dl (7-18); Carbon Dioxide 24 mmol/L (21-32); Chloride 109 mmol/L (98-107); Creatinine Clr Calc Pharmacy 61.4 ml/min; Est GFR (African American) 56.4; Est GFR (Non-African American) 48.7; Glucose 111 mg/dl (70-99); Magnesium 2.1 mg/dl (1.8-2.4); Potassium 3.9 mmol/L (3.5-5.1); Sodium 141 mmol/L (136-145)
--- NOTE | 2020-03-12 20:50 | XRay Report ---
XR chest 1V portable HISTORY: syncope COMPARISON: None. FINDINGS: A few small left basilar linear densities suggesting scarring or atelectasis. Otherwise, neel ngs are clear. The heart is normal in size. No pleural effusions. No pneumothorax. IMPRESSION: No acute process. ACT 112: Negative or not required by law. Electronically signed by: Omega Katz M.D. 03/12/2020 8:49 PM
[2020-03-12 20:55] LABS: Albumin Globulin Ratio 1.1 (0.9-2); Alkaline Phosphatase 65 U/L (45-117); Bilirubin,Total 0.5 mg/dl (0.2-1); Globulin 3.8 gm/dl (2.5-4.0); Total Protein 7.8 gm/dl (6.4-8.2); Troponin I < 0.015 ng/ml (0-0.045)
[2020-03-12] MEDS ORDERED: OPTIRAY 320 125ml IV ONE (23:05)
--- NOTE | 2020-03-12 23:58 | History & Physical Report ---
Date of Service March 12, 2020 Assessment & Plan (1) Syncope: Patient with syncopal event without prodrome. Tachycardic in ER with frequent PVCs. -Observation to medical with telemetry -Check orthostatic VS -Check 2D echo -Check carotid dopplers -IVF and electrolyte repletion Present on Admission?: Yes (2) GERD (gastroesophageal reflux disease): Chronic. -Continue Prilosec F/E/N - LR at 125mL/hr x 2 liters, electrolytes WNL, Regular diet as tolerated Ppx - Low risk for DVT Code - Full Dispo - Obs to medical with telemetry Present on Admission?: Yes History of Present Illness Chief Complaint: Syncope Primary Care Provider: Juanito Light Shankar Pearson is a 60yo male with no significant past medical history presenting from home after a syncopal event. Patient was with friends this evening when he had a syncopal event. He fell off a bar stool. Uncertain if he hit his head. He denies prodromal symptoms - CP, palpitations, dizziness, KENDRICK, dizziness, numbness, weakness preceding or following the event. He tried to get up afterwards and had some difficulty standing and felt slightly dizzy. Friends state no seizure activity. Briefly unconscious. When he recovered he felt very tired but no other complaints. Allergies Allergy/AdvReac Type Severity Reaction Status Date / Time No Known Allergies Allergy Verified 03/12/20 22:09 Home Medications Medication Instructions Recorded Confirmed Type multivit with min-folic acid 1 tab PO QAM 03/12/20 03/12/20 History [Men's Multivitamin Gummies] omeprazole magnesium [Prilosec OTC] 20 mg PO QAM 03/12/20 03/12/20 History Past Med/Surg History Surgical History (Updated 03/13/20 @ 00:09 by Eri Mederos DO) History of elbow surgery Family History Father Pancreatic cancer Denies family history of Prostate cancer Social History (Updated 03/13/20 @ 00:09 by Eri Mederos DO) Smoking Status: Current some day smoker Tobacco Type: Cigars Hx Alcohol Use: Yes Preferred Language: [place] Feels Safe at Home: Yes Review of Systems Review of Systems: All systems reviewed & are unremarkable except as noted in HPI & below Physical Exam Physical Exam: General: patient resting comfortably, NAD, non-toxic in appearance, AA&O x 4 Skin: warm, dry, intact, no rashes or lesions HEENT: NC/AT, PERRL, EOMI, anicteric sclera, conjunctiva without injection, external ear normal to inspection and nontender, nares patent, moist mucus membranes, dentition intact, no oropharyngeal lesions, neck supple, trachea midline, no LAD, no thyromegaly, no JVD Heart: +S1/S2, regular, tachycardic, no m/r/g Lungs: equal air entry bilaterally, no rales/rhonchi/wheezes Abd: +BS, soft, NT/ND, no masses/organomegaly/ascites Ext: warm, 2+ pulses in UE/LE bilaterally, no clubbing/cyanosis or edema Neuro: nonfocal, patient AA&O x 4, speech intact, no facial droop, moving all extremities on command with equal strength 5/5 Results & Data Results & Data ([facility]) Vital Signs (Past 12 Hours) Vital Signs Temp Pulse Resp BP Pulse Ox 03/12/20 23:08 107 H 15 153/90 H 94 03/12/20 22:30 112 H 17 139/75 03/12/20 22:00 108 H 15 132/73 96 03/12/20 21:30 105 H 14 141/76 H 03/12/20 20:30 97 H 14 144/77 H 95 03/12/20 20:24 36.5 C 80 18 155/78 H 97 Laboratory Results Lab Results 03/12/20 03/12/20 03/12/20 Range/Units 20:19 20:19 21:26 WBC 11.14 H (4.8-10.8) K/uL RBC 4.64 L (4.7-6.1) M/uL Hgb 15.9 (14.0-18.0) g/dL Hct 44.7 (42-52) % MCV 96.3 (80-100) fL MCH 34.3 H (25-34) pg MCHC 35.6 (32-36) g/dL RDW Std Deviation 45.0 (36.4-46.3) fL RDW Coeff of Bianca 12.9 (11.5-14.5) % Plt Count 204 (130-400) K/uL MPV 11.4 H (7.4-10.4) fL Immature Gran % (Auto) 0.4 % Neut % (Auto) 73.6 % Lymph % (Auto) 18.2 % [place] % (Auto) 6.6 % Eos % (Auto) 1.0 % Baso % (Auto) 0.2 % Neut # (Auto) 8.19 H (1.4-6.5) K/uL Lymph # (Auto) 2.03 (1.2-3.4) K/uL [place] # (Auto) 0.74 H (0.11-0.59) K/uL Eos # (Auto) 0.11 (0-0.5) K/uL Baso # (Auto) 0.02 (0-0.2) K/uL Immature Gran # (Auto) 0.05 H (0.00-0.02) K/uL Sodium 141 (136-145) mmol/L Potassium 3.9 (3.5-5.1) mmol/L Chloride 109 H (98-107) mmol/L Carbon Dioxide 24 (21-32) mmol/L Anion Gap 8.0 (3-11) BUN 18 (7-18) mg/dl Creatinine 1.53 H (0.6-1.4) mg/dl Est Cr Clr Drug Dosing 61.4 ml/min Est GFR ( Amer) 56.4 Est GFR (Non-Af Amer) 48.7 BUN/Creatinine Ratio 11.8 (10-20) Glucose 111 H (70-99) mg/dl Calcium 9.0 (8.5-10.1) mg/dl Magnesium 2.1 (1.8-2.4) mg/dl Total Bilirubin 0.5 (0.2-1) mg/dl AST 18 (15-37) U/L ALT 36 (12-78) U/L Alkaline Phosphatase 65 (45-117) U/L Troponin I < 0.015 (0-0.045) ng/ml Total Protein 7.8 (6.4-8.2) gm/dl Albumin 4.0 (3.4-5.0) gm/dl Globulin 3.8 (2.5-4.0) gm/dl Albumin/Globulin Ratio 1.1 (0.9-2) TSH 3.350 (0.300-4.500) uIu/ml Ethyl Alcohol mg/dL 22.2 H (0-3) mg/dl COVID-19 Eval Order SARS-CoV-2, RNA, NAAT (NEGATIVE) 03/12/20 03/12/20 Range/Units 23:15 23:15 WBC (4.8-10.8) K/uL RBC (4.7-6.1) M/uL Hgb (14.0-18.0) g/dL Hct (42-52) % MCV (80-100) fL MCH (25-34) pg MCHC (32-36) g/dL RDW Std Deviation (36.4-46.3) fL RDW Coeff of Bianca (11.5-14.5) % Plt Count (130-400) K/uL MPV (7.4-10.4) fL Immature Gran % (Auto) % Neut % (Auto) % Lymph % (Auto) % [place] % (Auto) % Eos % (Auto) % Baso % (Auto) % Neut # (Auto) (1.4-6.5) K/uL Lymph # (Auto) (1.2-3.4) K/uL [place] # (Auto) (0.11-0.59) K/uL Eos # (Auto) (0-0.5) K/uL Baso # (Auto) (0-0.2) K/uL Immature Gran # (Auto) (0.00-0.02) K/uL Sodium (136-145) mmol/L Potassium (3.5-5.1) mmol/L Chloride (98-107) mmol/L Carbon Dioxide (21-32) mmol/L Anion Gap (3-11) BUN (7-18) mg/dl Creatinine (0.6-1.4) mg/dl Est Cr Clr Drug Dosing ml/min Est GFR ( Amer) Est GFR (Non-Af Amer) BUN/Creatinine Ratio (10-20) Glucose (70-99) mg/dl Calcium (8.5-10.1) mg/dl Magnesium (1.8-2.4) mg/dl Total Bilirubin (0.2-1) mg/dl AST (15-37) U/L ALT (12-78) U/L Alkaline Phosphatase (45-117) U/L Troponin I (0-0.045) ng/ml Total Protein (6.4-8.2) gm/dl Albumin (3.4-5.0) gm/dl Globulin (2.5-4.0) gm/dl Albumin/Globulin Ratio (0.9-2) TSH (0.300-4.500) uIu/ml Ethyl Alcohol mg/dL (0-3) mg/dl COVID-19 Eval [facility] SARS-[facility]-2, RNA, NAAT NEGATIVE (NEGATIVE) Diagnostic Findings CTA Chest - No PE. Thoracic aorta is nondilated. No aneurysm or dissection. Lungs are well inflated with mildly prominent interstitial markings in both lungs bases which may represent subsegmental atelectasis, less likely interstitial infiltrates. No Pneumothorax or pleural effusion. Limited images of the upper abdomen demonstrate fatty infiltration of the liver. There is partial visualization foa 4.2cm 14HU cystic appearing structure of the right retroperitoneum, possibly cyst extending off the upper pole of the right kidney. Mild multilevel osteophytosis is seen throughout the thoracic spine. CT Head - no skull fracture or scalp hematoma. CT C-spine - moderate to severe multilevel degenerative disc disease throughout the cervical spine. ECG Additional Comments: EKG - No actue ischemic changes PG Care Time/CCT Total # of Minutes Spent Total Time Spent with Patient: Total time spent is greater than 50% in coordination of care (as documented) at patient's floor/unit and/or counseling patient: Coding Level of Care Code 85837 OBS Care - Level 2 Diagnoses Syncope R55 Syncope type: unspecified GERD (gastroesophageal reflux disease) K21.9 Esophagitis presence: esophagitis presence not specified (1) GERD (gastroesophageal reflux disease) Esophagitis presence: esophagitis presence not specified Qualified Code(s): K21.9 - Gastro-esophageal reflux disease without esophagitis (2) Syncope Syncope type: unspecified Qualified Code(s): R55 - Syncope and collapse
[2020-03-13] MEDS: LACTATED RINGER'S 1,000 ML IV SCH ×2 (04:02→12:29)
--- NOTE | 2020-03-13 08:03 | CT Scan Report ---
HEAD CT NONCONTRAST CT DOSE: 1071.89 mGy.cm HISTORY: syncope TECHNIQUE: Multiaxial CT images of the head were performed without the use of intravenous contrast. A utomated exposure control was utilized for this study. A dose lowering technique was utilized adheri ng to the principles of ALARA. Comparison: None. Findings: The paranasal sinuses and mastoid air cells are clear. The calvarium and skull base are int act. The ventricles and sulci are within normal limits. There is no mass, hematoma, midline shift, or acute infarct. Impression: No acute intracranial abnormality. ACT 112: Negative or not required by law. Electronically signed by: Omega Katz M.D. 03/13/2020 8:01 AM
--- NOTE | 2020-03-13 08:05 | CT Scan Report ---
CERVICAL SPINE CT CT DOSE: HISTORY: syncope TECHNIQUE: Multiaxial CT images of the cervical spine were performed and reformatted in the sagittal and coronal plane without the use of contrast. A dose lowering technique was utilized adhering to th e principles of ALARA. COMPARISON: None. FINDINGS: No fractures. No subluxation. Prevertebral soft tissues and the C1-C2 interval are intact. No pneumothorax. Moderate to severe degenerative disc disease throughout the majority of the cervical spine. Moderate calcified plaque within the left carotid bifurcation. IMPRESSION: No fractures within the cervical spine. ACT 112: Negative or not required by law. Electronically signed by: Omega Katz M.D. 03/13/2020 8:04 AM
--- NOTE | 2020-03-13 08:19 | Ultrasound Report ---
CAROTID ARTERY ULTRASOUND CLINICAL HISTORY: syncope COMPARISON STUDY: None. TECHNIQUE: Real-time, grayscale, and color Doppler sonography of the carotid and vertebral arteries w as performed. Images were viewed in the transverse and longitudinal planes. FINDINGS: There is mild to moderate atherosclerotic plaque. Velocity measurements are listed below. COMMON CAROTID PEAK SYSTOLIC VELOCITY (CM/S): RIGHT 181 LEFT 180 ICA PEAK SYSTOLIC VELOCITY (CM/S): RIGHT 209 LEFT 126 Systolic ratios between the internal to common carotid arteries are normal. Antegrade flow is seen in the vertebral arteries. The external carotid arteries are patent. Blood pressure could not be obtained in this patient. IMPRESSION: Elevated velocities within the bilateral common carotid and internal carotid arteries, s lightly greater on the right. However, normal systolic ratios. Therefore, no sonographic evidence of a hemodynamically significant stenosis within the bilateral internal carotid arteries. ACT 112: Negative or not required by law. Electronically signed by: Dieter Prakash M.D. 03/13/2020 8:17 AM
[2020-03-13] MEDS ORDERED: PANTOprazole 40 MG TAB PO SCH (09:00)
--- NOTE | 2020-03-13 09:36 | CT Scan Report ---
CHEST CTA for PULMONARY ARTERIES CT DOSE: 472.63 mGy.cm HISTORY: Tachycardia/syncope eval for PE TECHNIQUE: Multiaxial CT images of the chest were performed following the intravenous administration of contrast to evaluate the pulmonary arteries. Maximal intensity projection images were also obtaine d. A dose lowering technique was utilized adhering to the principles of ALARA. COMPARISON STUDY: None. FINDINGS: Hepatic steatosis. The visualized spleen and right adrenal gland are unremarkable. The left adrenal gland is not included on this study. Partially visualized 4.2 cm hypodense lesion within the right upper quadrant. This favors an exophytic renal cyst. Normal esophagus. Subcentimeter mediastin al and hilar lymph nodes do not meet CT criteria for pathologic involvement. The heart is normal in s ize. No pleural or pericardial effusions. Normal caliber thoracic aorta with no evidence for dissecti on. Motion artifact results in suboptimal evaluation of the majority of the segmental and subsegmenta l pulmonary arteries. However, no definite filling defects identified to suggest pulmonary embolus. N o suspicious lytic or blastic osseous lesions. No pneumothorax. The central airways are patent. A few bibasilar linear groundglass densities favor atelectasis/dependent change. IMPRESSION: 1. No evidence for pulmonary embolus with limitations as described above. 2. Hepatic steatosis. ACT 112: Negative or not required by law. Electronically signed by: Omega Katz M.D. 03/13/2020 9:35 AM
--- NOTE | 2020-03-13 10:02 | Hospitalist Progress Note ---
Date of Service March 13, 2020 Assessment & Plan (1) Syncope: Patient with syncopal event without prodrome. Tachycardic in ER with frequent PVCs. -Observation to medical with telemetry -Check orthostatic VS -Check 2D echo -Check carotid dopplers -IVF and electrolyte repletion (2) GERD (gastroesophageal reflux disease): Chronic. -Continue Prilosec F/E/N - LR at 125mL/hr x 2 liters, electrolytes WNL, Regular diet as tolerated Ppx - Low risk for DVT Code - Full Dispo - Obs to medical with telemetry Admission and Anticipated Discharge Date Admission Date: March 12, 2020 Results & Data Results & Data ([facility]) Vital Signs (Past 12 Hours) Vital Signs Temp Pulse Pulse Resp BP BP Pulse Ox 03/13/20 08:08 36.9 C 76 18 148/83 H 95 03/13/20 07:25 71 03/13/20 04:27 82 03/13/20 03:41 37 C 90 18 138/88 96 03/13/20 03:00 90 13 142/85 H 94 03/13/20 02:30 96 H 16 03/13/20 01:30 101 H 15 136/85 93 03/13/20 01:00 104 H 13 143/87 H 93 03/13/20 00:30 114 H 18 140/83 93 03/13/20 00:00 109 H 17 152/83 H 94 03/12/20 23:30 113 H 18 141/91 H 94 03/12/20 23:08 107 H 15 153/90 H 94 03/12/20 22:30 112 H 17 139/75 Laboratory Results Laboratory Results - last 24 hr 03/12/20 03/12/20 03/12/20 20:19 20:19 21:26 WBC 11.14 H RBC 4.64 L Hgb 15.9 Hct 44.7 MCV 96.3 MCH 34.3 H MCHC 35.6 RDW Std Deviation 45.0 RDW Coeff of Bianca 12.9 Plt Count 204 MPV 11.4 H Immature Gran % (Auto) 0.4 Neut % (Auto) 73.6 Lymph % (Auto) 18.2 [place] % (Auto) 6.6 Eos % (Auto) 1.0 Baso % (Auto) 0.2 Neut # (Auto) 8.19 H Lymph # (Auto) 2.03 [place] # (Auto) 0.74 H Eos # (Auto) 0.11 Baso # (Auto) 0.02 Immature Gran # (Auto) 0.05 H Sodium 141 Potassium 3.9 Chloride 109 H Carbon Dioxide 24 Anion Gap 8.0 BUN 18 Creatinine 1.53 H Est Cr Clr Drug Dosing 61.4 Est GFR ( Amer) 56.4 Est GFR (Non-Af Amer) 48.7 BUN/Creatinine Ratio 11.8 Glucose 111 H Calcium 9.0 Magnesium 2.1 Total Bilirubin 0.5 AST 18 ALT 36 Alkaline Phosphatase 65 Troponin I < 0.015 Total Protein 7.8 Albumin 4.0 Globulin 3.8 Albumin/Globulin Ratio 1.1 TSH 3.350 Ethyl Alcohol mg/dL 22.2 H COVID-19 Eval Order SARS-CoV-2, RNA, NAAT 03/12/20 03/12/20 23:15 23:15 WBC RBC Hgb Hct MCV MCH MCHC RDW Std Deviation RDW Coeff of Bianca Plt Count MPV Immature Gran % (Auto) Neut % (Auto) Lymph % (Auto) [place] % (Auto) Eos % (Auto) Baso % (Auto) Neut # (Auto) Lymph # (Auto) [place] # (Auto) Eos # (Auto) Baso # (Auto) Immature Gran # (Auto) Sodium Potassium Chloride Carbon Dioxide Anion Gap BUN Creatinine Est Cr Clr Drug Dosing Est GFR ( Amer) Est GFR (Non-Af Amer) BUN/Creatinine Ratio Glucose Calcium Magnesium Total Bilirubin AST ALT Alkaline Phosphatase Troponin I Total Protein Albumin Globulin Albumin/Globulin Ratio TSH Ethyl Alcohol mg/dL COVID-19 Eval Order Covid19 [facility] SARS-CoV-2, RNA, NAAT NEGATIVE Medications Administered Current Inpatient Medications Lactated Ringer's (Lr) 1,000 mls @ 125 mls/hr IV .Q8H [facility] Stop: 03/13/20 19:38 Last Admin: 03/13/20 04:02 Dose: 125 mls/hr Documented by: Pantoprazole Sodium (Pantoprazole 40 Mg Tab) 40 mg PO QAM CHRISTI Stop: 04/12/20 08:59 Last Admin: 03/13/20 08:22 Dose: 40 mg Documented by: PG Care Time/CCT Total # of Minutes Spent Total Time Spent with Patient: Total time spent is greater than 50% in coordination of care (as documented) at patient's floor/unit and/or counseling patient: Coding Diagnoses Syncope R55 Syncope type: unspecified GERD (gastroesophageal reflux disease) K21.9 Esophagitis presence: esophagitis presence not specified (1) Syncope Syncope type: unspecified Qualified Code(s): R55 - Syncope and collapse (2) GERD (gastroesophageal reflux disease) Esophagitis presence: esophagitis presence not specified Qualified Code(s): K21.9 - Gastro-esophageal reflux disease without esophagitis
--- NOTE | 2020-03-13 14:10 | Discharge Summary ---
Date of Service March 13, 2020 Admission HPI Per Admitting Provider Shankar Pearson is a 60yo male with no significant past medical history presenting from home after a syncopal event. Patient was with friends this evening when he had a syncopal event. He fell off a bar stool. Uncertain if he hit his head. He denies prodromal symptoms - CP, palpitations, dizziness, KENDRICK, dizziness, numbness, weakness preceding or following the event. He tried to get up afterwards and had some difficulty standing and felt slightly dizzy. Friends state no seizure activity. Briefly unconscious. When he recovered he felt very tired but no other complaints. Principal Diagnosis Syncope Discharge Exam Constitutional WD/WN, vitals as above Respiratory normal respiratory effort, lungs clear to auscultation Cardiovascular RRR, no murmur, no edema Gastrointestinal (Abdomen) normal bowel sounds, soft, nontender, no hepatosplenomegaly Neurologic grossly intact Discharge Data Allergies Allergy/AdvReac Type Severity Reaction Status Date / Time No Known Allergies Allergy Verified 03/12/20 22:09 Consultations 03/12/20 22:10 ED Decision to Admit Stat Ordered Studies 03/12/20 20:12 CT cervical spine wo con Urgent 03/12/20 20:13 CT head/brain wo con Urgent 03/12/20 22:10 CT angio chest PE protocol Urgent 03/13/20 03:39 US carotid doppler BI Routine 03/13/20 Cardiac ECHO Hospital Course (1) Syncope: No repeat symptoms were found during the hospital stay. Completed US Carotids Negative Cardiac Echo, see report, mild Pumonary HTn was found. No other specific concern to explain syncope. The patient feels well at this time and therefore to be released with additional evaluation. (2) Elevated serum creatinine: No prior labs to compare but Cr. 1.53 during admission. Possible secondary to dehydration on admission after working with minimal fluid intake and 2-4 beers after work. recommending repeat Labs at his f/u appointment with his PCP. (3) Pulmonary hypertension: See Echo Report, will have the PCP folow on additional evaluation (4) GERD (gastroesophageal reflux disease): No difficulties during stay and will continue on omeprazole on prn basis Total Time Total Time Spent Total Time Spent (In Minutes): 40 Discharge Plan Discharge Items Patient Disposition: Home - Self-Care Reason For Visit: SYNCOPE Discharge Diagnosis: Syncope Condition on Discharge: Good Activity: Resume your previous activity Bathing: No limitations Sexual Activity: When tolerated Exercise/Sports: Rest today Driving/Machine Use: No limitations Weightbearing: Full weightbearing Non-emergency contact: Primary Care Provider Call non-emergency contact if: you have any medication questions and your symptoms worsen Follow-up/Referrals: Juanito Light [Primary Care Provider] - Diet: Regular Addtl Attending Provider Instructions: You were admitted for an evaluation of syncope or passing out. No repeat symptoms during your hospital stay. Your testing was normal. Important you follow up with your PCP for further evaluation. If he has repeat symptoms he should return to his PCP or ER evaluation. During admission your Creatinine or kidney test was slightly elevated and should be repeated by your PCP in the next 1 week. Continue good hydration and avoid NSAIDS for know (Ibuprofen, alleve, Etc.) Your Glucose or Blood Sugar was elevated and should be repeated on a fasting basis. Important to be active on a regular basis and good diet control. Blood Pressure was elevated at times and further evaluation by PCP is needed. Recommend taking your Blood Pressure Daily in the am at home and bring results to your follow up appointment. Pending Studies at Discharge: No Stand-Alone Forms: My [facility] Jet, Smoking Cessation Medications and DC Order Prescriptions: Continued Men's Multivitamin Gummies 200 mcg Tablet,Chewable 1 tab PO QAM RF: 0 omeprazole magnesium [Prilosec OTC] 20 mg Tablet,Delayed Release (Dr/Ec) 20 mg PO QAM RF: 0 Discharge Orders: Discharge Order (Routine); Ordered 03/13/20 Ordered By: Juanito Silverman Admission Data Admit Date/Time: 03/12/20 23:52 Attending Provider: Juanito Silverman Admit Provider: Eri Mederos Primary Care Provider: Juanito Light Other Providers: Eri Mederos Coding Level of Care Code D/C Day Management >30 mins Diagnoses Syncope R55 Syncope type: unspecified Elevated serum creatinine R79.89 Pulmonary hypertension I27.20 GERD (gastroesophageal reflux disease) K21.9 Esophagitis presence: esophagitis presence not specified
--- NOTE | 2020-03-13 14:29 | XCELERA ---
[id number]
--- NOTE | 2020-03-13 21:47 | Electrocardiogram Report ---
Test Reason : Blood Pressure : / mmHG Vent. Rate : 086 BPM Atrial Rate : 086 BPM P-R Int : 178 ms QRS Dur : 106 ms QT Int : 368 ms P-R-T Axes : 054 -02 025 degrees QTc Int : 440 ms Normal sinus rhythm Normal ECG When compared with ECG of 08-FEB-2011 11:46, No significant change was found Confirmed by Dwain Mendoza ([id number]) on 03/13/2020 9:47:31 PM Referred By: REFERRED SELF Confirmed By:Dwain Mendoza
== END 2020-03-13 16:06 | disposition home or self-care (01) ==
LOC: 2N 20:02 → ED 20:02 → SUATTDRO 23:52 → 2N 03-13 03:17